=== PATIENT | female | born 1990 | race Caucasian/White ===

== ENCOUNTER 2020-10-17 11:04 | Emergency (ER) | payer MEDICAID ==
[~2020-10-17] VITALS: Ht 160 cm; Wt 62.0 kg
--- NOTE | 2020-10-17 11:30 | NUR ---
PT REPORTS BLOODY DIARRHEA "10 MINUTES AFTER EATING A BURGER" ON WEDNESDAY NIGHT (ABOUT 2200). HAD KETO COFFEE AT LUNCHTIME ON WEDNESDAY. TOOK IMMODIUM YESTERDAY. LAST BM: YESTERDAY AFTERNOON. LAST ORAL INTAKE: [employer], FLUIDS LAST NOC. REPORTS "PLAYING AROUND" WITH KETO DIET. HX: LIVER ABSCESS 2008.
[2020-10-17] MEDS ORDERED: MULTIVITAMIN (11:33)
[2020-10-17] MEDS ORDERED: BIRTHCONTROL (11:33)
[2020-10-17 12:24] LABS: BASOPHILS % (AUTO) 1 % (0-1); EOSINOPHILS % (AUTO) 1 % (1-7); LYMPHOCYTES % (AUTO) 19 % (22-44); MEAN CORPUSCULAR HEMOGLOBIN 29.7 pg (27.0-34.8); MEAN CORPUSCULAR HGB CONC 33.9 g/dL (32.4-35.8); MEAN PLATELET VOLUME 8.4 fL (7.4-10.4); MONOCYTES % (AUTO) 4 % (2-9); NEUTROPHILS % (AUTO) 76 % (42-75); PLATELET COUNT 282 x10^3/uL (130-400); RED BLOOD COUNT 4.22 x10^6/uL (3.82-5.3); RED CELL DISTRIBUTION WIDTH 12.9 % (9.6-15.2)
[2020-10-17 12:25] LABS: MD NO
[2020-10-17 12:30] VITALS: BP 107/72
[2020-10-17 12:30] LABS: ALBUMIN 3.2 g/dL (3.4-5.0); ANION GAP 5 mmol/L (5-15); CALCIUM 8.3 mg/dL (8.5-10.1); CHLORIDE 110 mmol/L (98-107)
[2020-10-17 12:35] LABS: ALANINE AMINOTRANSFERASE 34 U/L (12-78); ALKALINE PHOSPHATASE 52 U/L (45-117); BILIRUBIN,TOTAL 0.9 mg/dL (0.2-1.0); CREATININE 0.74 mg/dL (0.55-1.02); TOTAL PROTEIN 6.5 g/dL (6.4-8.2)
--- NOTE | 2020-10-17 12:43 | NUR ---
RESTING QUIETLY ON GURNEY, USING OWN CELL PHONE. AWAITING TEST RESULTS. SIDE RAIL UP X1, CALL LIGHT W/IN REACH.
== END 2020-10-17 13:20 | disposition home or self-care (01) ==
LOC: ED 11:36
DX: K52.9 Noninfective gastroenteritis and colitis, unspecified (principal)
CPT/HCPCS: 36415; 80053; 83690; 84703; 85025; 99283